=== PATIENT | female | born 1945 | race Caucasian/White ===

== ENCOUNTER 2017-01-29 10:50 | Outpatient (CLI) | payer MEDICARE, OTHER | END 2017-01-29 23:59 | disposition home or self-care (01) | DX: R07.89 Other chest pain (principal) ==

== ENCOUNTER 2017-01-30 08:42 | Outpatient (CLI) | payer MEDICARE, OTHER ==
[2017-01-30] MEDS ORDERED: IOPAMIDOL-300 100 ML VIAL IVP ONE (17:12)
== END 2017-01-30 08:43 | disposition home or self-care (01) ==
DX: J90 Pleural effusion, not elsewhere classified (principal)
CPT/HCPCS: 71260; Q9967

== ENCOUNTER 2017-01-31 13:41 | Outpatient (CLI) | payer MEDICARE, OTHER ==
[2017-01-31] MEDS ORDERED: BUFFERED LIDOCAINE 10 ML SYRINGE IU ONE (16:01)
== END 2017-01-31 13:42 | disposition home or self-care (01) ==
DX: J90 Pleural effusion, not elsewhere classified (principal); Z01.812 Encounter for preprocedural laboratory examination